=== PATIENT | male | born 1960 | race Caucasian/White ===

== ENCOUNTER 2018-01-04 05:26 | Inpatient (IN) | payer OTHER ==
[~2018-01-04] VITALS: Ht 172.7 cm; Wt 104.3 kg
--- NOTE | ~2018-01-04 | S ---
[facility] [place] [address] SURGICAL PATH RPT PROCEDURE Name: PEPE MALLOY LEONIDES Room #: 401-I [facility] IN M.R.#: [id number] Admission: 01/04/18 Date of : 58 Discharge: 01/05/18 Report #: [id number] Path Case #: [id number] PATHOLOGY REPORT COLLECTION DATE: 01/04/2018 RECEIVED DATE: 01/04/2018 SUBMITTING PHYS: Dr. Adeline Barrios OTHER PHYS: Dr. Gianni Malloy SPECIMEN(S) RECEIVED: A.Portion of stomach gastric sleeve * * * * * * * * * * * * FINAL DIAGNOSIS: "Portion of stomach gastric sleeve", partial gastrectomy: - Gastric mucosa, submucosa and muscular wall with minimal histologic alterations. (CLW:db; 01/05/2018) PATHOLOGIST: Brisa Simmons M.D. REPORT ELECTRONICALLY SIGNED BY: Brisa Simmons M.D. DATE/TIME: 01/05/2018 14:11 * * * * * * * * * * * * GROSS PATHOLOGY: The specimen is received in formalin, labeled "Pepe Malloy, portion of stomach gastric sleeve". Received is a partial gastrectomy specimen with a stapled margin of resection measuring 19.8 x 4.7 cm in greatest dimensions. The serosal surface is pink-lozano, smooth, and focally dusky. Opening the specimen reveals a pink-lozano mucosa displaying its normal folds. No polyps or mass lesions identified. The specimen is submitted representatively in cassettes A1-A3. (SDY; 01/04/2018) CLINICAL HISTORY: Morbid obesity INITIAL CPT CODE(S): A; 37661 Professional services performed by [facility] at [facility] [address] , [place] [address] Technical services performed by [facility] at [address] [place] [address] [address] [place] [address] SURGICAL PATH RPT PROCEDURE Name: PEPE MALLOY Room #: 401-I [facility] IN M.R.#: [id number] Admission: 01/04/18 Date of : 58 Discharge: 01/05/18 Report #: [id number] Path Case #: [id number] [address]. [facility] [address] [address] PHONE: [phone] DIRECTOR: Vidal Kee M.D. * * * END OF REPORT * * *
--- NOTE | ~2018-01-04 | EKG ---
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
--- NOTE | ~2018-01-04 | O ---
[facility] [place] [address] OPERATIVE REPORT Name: PEPE TIDWELL Room #: 401-I [facility] IN M.R.#: [id number] Admission: 01/04/18 Attend Phys: Adeline Barrios MD, Discharge: 01/05/18 Date of : 58 Report #: [id number] THIS REPORT FOR: //name// CC: Jeanie Barrios DATE OF SERVICE: 01/04/2018 PREOPERATIVE DIAGNOSES: 1. Hypertension. 2. Diabetes mellitus. 3. Hyperlipidemia. 4. Obstructive sleep apnea. 5. Morbid obesity with a BMI of 35.58. POSTOPERATIVE DIAGNOSES: 1. Hypertension. 2. Diabetes mellitus. 3. Hyperlipidemia. 4. Obstructive sleep apnea. 5. Morbid obesity with a BMI of 35.58. PROCEDURES: 1. Laparoscopic sleeve gastrectomy. 2. A thorough esophagogastroduodenoscopy (EGD). SURGEON: Adelien Barrios M.D. SHIPPING SUPPORT: Gianni Webb M.D. ANESTHESIA: General endotracheal anesthesia. ESTIMATED BLOOD LOSS: Minimal (less than 5 mL). COMPLICATIONS: None appreciated. SPECIMENS: Gastric sleeve resection specimen to pathology. INDICATIONS: The patient is a 57-year-old obese male with multiple medical issues that are directly related to his obesity and are namely hypertension, diabetes mellitus, sleep apnea and hyperlipidemia. The patient has tried numerous weight loss attempts, all to no avail. He has been seen and cleared for bariatric surgery by his primary care physician, by a audio visual specialist as well as by a psychologist, who also state that it is necessary for long-term weight loss and resolution of his comorbid conditions. The patient has then undergone aggressive diet and exercise attempts under my direction for the past [facility] [address] [place] [address] OPERATIVE REPORT Name: PEPE TIDWELL Room #: 401-I [facility] IN M.R.#: [id number] Admission: 01/04/18 Attend Phys: Adeline Barrios MD, Discharge: 01/05/18 Date of : 58 Report #: [id number] 8 months showing no significant weight loss thus far, still maintaining a BMI of above 35. Therefore, indication was for the above-mentioned procedures today. DESCRIPTION OF PROCEDURE: After explaining the risks, benefits and alternatives of the procedure with the patient in detail and obtaining consent, the patient was brought to the operating room and placed supine on the operating room table. After conducting a thorough timeout procedure verifying correct patient and procedure, the patient was given general endotracheal anesthesia. Once adequate anesthesia was obtained, his SCDs were hooked up to pneumatic compression device and he was given a preoperative dose of antibiotics in line with the SCIP protocol. It should be noted he was also given a dose of Lovenox 1 hour prior to the operating room to prevent venous thromboembolism. The patient's abdomen was now prepped and draped in standard surgical sterile fashion after positioning him in the low lithotomy position with his legs in the Yellofin stirrups. I began the procedure by performing a thorough EGD. The Vartopiainon upper endoscope was used to intubate the oropharynx. This was traversed down into the stomach where the pylorus was identified and intubated. The scope was advanced to the second portion of the duodenum where slow careful withdrawal of the EGD scope showed no evidence of duodenitis, gastritis, esophagitis, mass lesions or ulcerations. Retroflexion view of the scope showed no evidence of a hiatal hernia. The scope was straightened out with its tip at the level of the pylorus where it was taped into position and the stomach was fully desufflated. I now turned my attention to the operative portion of the procedure. After sterilely scrubbing, 5 mL of 0.5% Marcaine with epinephrine were used to anesthetize the skin in the right mid abdomen, 5 cm cephalad to the umbilicus and 5 cm to the patient's right. A #15 bladed scalpel was used to create a 1.5 cm transverse skin incision at this location. A 15 mm Visiport was placed over 0 degree 5 mm laparoscope and was introduced through this incision site. Once intra-abdominal placement was verified visually, the obturator for the trocar and laparoscope were both removed and the abdomen was insufflated to 15 mmHg using carbon dioxide gas. The laparoscope was changed to a 5-mm 30-degree laparoscope, which was reintroduced through this trocar. The entire abdomen was evaluated to ensure no injury upon entry. I now placed 3 additional 5 mm ports in the patient's left mid abdomen. The first was placed 2 cm cephalad to the umbilicus and 1 cm to the patient's left, and an additional one was placed 5 cm lateral to that, and a final one was placed in the extreme left lateral flank. All three additional 5 mm ports were placed under direct vision. After anesthetizing the skin at each location with 5 mL of 0.5% Marcaine with epinephrine, I created small skin nicks using #15 bladed scalpel. The laparoscope was placed in the 5 mm port just to the left of the patient's umbilicus and he was placed in steep reverse Trendelenburg position. I now anesthetized the skin in the subxiphoid location with 5 mL of 0.5% Marcaine with epinephrine and I created a small skin reji at that location. A 5 mm obturator was used to penetrate the fascia at this level and then the Marge retractor was placed through this defect, where it was positioned up under the left lobe of the liver and was held up against the posterior aspect in the anterior [facility] [address] [place] [address] OPERATIVE REPORT Name: DIANNPEPE LEONIDES Room #: 401-I [facility] IN M.R.#: [id number] Admission: 01/04/18 Attend Phys: Adeline Barrios MD, Discharge: 01/05/18 Date of : 58 Report #: [id number] abdominal wall. This was then fixed into position using the iron internet researcher device and we now had complete access to the stomach and hiatal regions and again saw no evidence of a hiatal hernia. I now started my dissection after identifying our landmarks. The vein of Andrade was identified overlying the pylorus. I measured 4 cm proximal to this location and began taking down the short gastric arteries from this location all the way up the greater curvature of the stomach using Harmonic scalpel for hemostasis. Once I arrived upon the base of the left sam, I dissected anteriorly up the sam and elevated the stomach anteriorly, taking down all posterior gastric attachments, ensuring that we were well away from the posterior gastric wall as well as the anterior aspect of the stomach, so as to prevent injury from thermal spread. Now that we had full mobilization of the entire stomach, the EGD scope was positioned to run along the lesser curvature of the stomach and we started the stapling portion of the procedure. The Cook 60 mm stapler with a black load using Davila's Ifeoma-Strip buttressing material was placed into the abdomen through the 15 mm port. This first firing started at the location 4 cm proximal to the pylorus and was fired right along, but not extremely tight to the scope, so as not to cause stricturing, especially at the incisura. An additional firing of another black load again utilizing Davila's Ifeoma-Strip buttressing material was carried out following the scope as a 34-Algerian bougie. Five additional firings, all of green loads, all utilizing Davila's Ifeoma-Strip buttressing material was carried out following the scope as a bougie all the way up to the left sam until the stomach was completely transected. This left an excellently oriented sleeve of gastric remnant that had no twisting and we had complete hemostasis. The resection specimen was placed in the right upper quadrant for future retrieval and 10 mL of Tisseel on the LiveDataspray device was now used to coat the entirety of the staple line with fibrin glue. While this was drying, the resection specimen was grasped and removed out of the abdomen through the 15 mm trocar under direct vision. I then closed the 15 mm fascial incision using 0 PDS suture on a Naveen-Navarro needle under direct vision. That was tied down under direct vision after reducing the insufflation pressure to 8 mmHg to ensure I did not catch a loop of bowel or omentum in the suture repair. Now that the Tisseel was dry, normal saline was instilled into the upper abdomen and EGD scope was reactivated and used to gently reinsufflate the sleeved stomach. Slow withdrawal of the scope showed no evidence of internal bleeding from the staple line whatsoever and we were able to perform a leak test showing no bubbling whatsoever in the normal saline in the abdomen. The scope was then used to desufflate the stomach, removed via the oropharynx, passed off the field and I sterilely reentered the operative field once again. All normal saline was suctioned out and it ran clear throughout. We had no twisting to the sleeve and again had complete hemostasis. The Marge retractor was removed under direct vision. The liver was healthy and uninjured. The abdomen was now fully desufflated and all remaining trocars were removed under direct vision. A 4-0 Monocryl was used in a standard subcuticular fashion for all skin incisions and Dermabond glue was applied to all skin wounds. The corner of the resection specimen that had been removed was trimmed away and normal saline was passively [address] [address] OPERATIVE REPORT Name: TIDWELLPEPE Room #: 401-I [facility] IN M.R.#: [id number] Admission: 01/04/18 Attend Phys: Adeline Barrios MD, Discharge: 01/05/18 Date of : 58 Report #: [id number] instilled into the resection specimen yielding 1450 mL in the resection specimen itself. At the end of the procedure, all instrument, needle and sponge counts were correct. The patient tolerated the procedure without incident, was awakened in the operating room and transitioned to the recovery room in stable condition with no apparent complications. <ELECTRONICALLY SIGNED> By: Adeline Barrios MD, FACS 01/08/18 1009 [id number] Adeline Barrios MD, FACS /nt
[~2018-01-04 05:26] MED LIST: ALPHAGAN P5 ML OPHTHALMIC; ASPIR 8181 MG PO; BYSTOLIC 5 MG5 M1 PO; CALCIUM 600 +1 EAC1 PO; CRESTOR10 MG PO; FIBER0.52 G1 PO; JANUVIA100 MG PO; MICARDIS 80 MG80 MG PO; PROSCAR 5MG TABL5 MG PO; SYNTHROID175 MCG PO; THERATRUM COMP1 EAC2 PO
[2018-01-04 11:00] VITALS: BP 175/108
[2018-01-04 11:30] VITALS: BP 174/107
[2018-01-04 12:00] VITALS: BP 171/95
[2018-01-04 12:30] VITALS: BP 161/97
[2018-01-04 13:30] VITALS: BP 151/88
[2018-01-04 19:10] VITALS: BP 121/71
[2018-01-05] VITALS: BP 100/65
[2018-01-05 04:13] VITALS: BP 111/59
[2018-01-05 05:56] LABS: HEMATOCRIT 38.5 % (42.0-52.0); HEMOGLOBIN 12.8 gm/dL (14.0-18.0); MCHC 33.3 g/dL (28.0-37.0); RBC 4.28 mil/uL (4.50-6.00); WBC 10.5 thou/uL (4.0-11.0)
[2018-01-05 06:05] LABS: CREATININE 1.3 mg/dL (0.7-1.3); POTASSIUM 4.2 mmol/L (3.5-5.1)
[2018-01-05 07:17] VITALS: BP 104/64
[2018-01-05] MEDS ORDERED: HYDROCODONE-ACE15 ML PO (09:20)
[2018-01-05 10:01] VITALS: BP 104/64
== END 2018-01-05 10:30 | disposition home or self-care (01) | DRG 621 ==
LOC: OR 05:26 → TBA 05:26 → OR 09:49 → 4N 10:54 → OR 10:54 → ENTRNSPT 01-05 10:25 → 4N 01-05 10:30 → EDTRNSPTSTS 01-05 10:31
PROVIDERS: Surgery
DX: E66.01 Morbid (severe) obesity due to excess calories (principal); I10 Essential (primary) hypertension; E11.9 Type 2 diabetes mellitus without complications; G47.33 Obstructive sleep apnea (adult) (pediatric); E78.00 Pure hypercholesterolemia, unspecified; Z68.35 Body mass index [BMI] 35.0-35.9, adult
CPT/HCPCS: 10790; 50010; 50101; 50222; 50249; 50386; 50555; 50739; 50740; 50962; 51437; 52182; 52265; 53307; 53311; 54022; 54118; 56462; 56525; 56526; 57092; 62110; 62900; 70005

== ENCOUNTER → 2020-05-30 | Outpatient (CLI) | payer OTHER ==
[~2020-05-30] MED LIST changes: +HYDROCODONE-ACE15 ML PO
== END ==
LOC: CAT 10:24
PROVIDERS: ATTEND Internal Medicine Cardiovascular Disease
DX: Z13.6 Encounter for screening for cardiovascular disorders (principal); I25.10 Atherosclerotic heart disease of native coronary artery without angina pectoris; E78.00 Pure hypercholesterolemia, unspecified

== ENCOUNTER → 2020-07-18 | Outpatient (CLI) | payer OTHER | LOC: SJCVCIMAG 07:11 | PROVIDERS: ATTEND Internal Medicine Cardiovascular Disease | DX: I10 Essential (primary) hypertension (principal); E78.5 Hyperlipidemia, unspecified ==